=== PATIENT | male | born 1955 | race Caucasian/White ===

== ENCOUNTER 2017-10-31 10:19 | Day surgery (SDC) | payer BC ==
[~2017-10-31] VITALS: Ht 180.3 cm; Wt 85.6 kg
[2017-10-31] MEDS ORDERED: IBU600 MG PO (10:55)
[2017-10-31] MEDS ORDERED: ATIVAN 0.50.5 MG/TAB PO (10:55)
[2017-10-31] MEDS ORDERED: MASON NATURAL2000 IU PO (10:56)
[2017-10-31 11:05] VITALS: BP 147/89; PULSE 100; TEMP 98.3
[2017-10-31 12:30] VITALS: BP 125/80; PULSE 91
[2017-10-31 12:45] VITALS: BP 121/81; PULSE 93
[2017-10-31 13:00] VITALS: BP 123/79; PULSE 89
[2017-10-31 13:15] VITALS: BP 127/73; PULSE 88
[2017-10-31] MEDS ORDERED: PRILOSEC 20MG20 MG PO (13:23)
[2017-10-31 15:59] VITALS: BP 125/85; PULSE 92
== END 2017-10-31 13:44 | disposition home or self-care (01) ==
LOC: SDCO 10:19
DX: K21.0 Gastro-esophageal reflux disease with esophagitis (principal); K62.1 Rectal polyp; K59.00 Constipation, unspecified; K57.30 Diverticulosis of large intestine without perforation or abscess without bleeding; Z79.82 Long term (current) use of aspirin
CPT/HCPCS: J2250; J3010; J7030